=== PATIENT | female | born 1955 | race Caucasian/White ===

== ENCOUNTER 2017-09-14 06:10 | Day surgery (SDC) | payer MEDICARE ==
[~2017-09-14] VITALS: Ht 162.6 cm; Wt 99.8 kg
[~2017-09-14 06:10] MED LIST: ASPIR 8181 M1 PO; AUGMENTIN 500-1 EACH PO; BIOTIN10 MG PO; COZAAR 50 MG TA50 M2 PO; HYDROCODON-ACE1 EAC5 PO; LEVAQUIN 750 M750 MG PO; LIPITOR10 MG PO; LOPRESSOR25 PO; NAPROSYN500 MG PO; NEXIUM 40 MG CA40 M1 PO; TRAMADOL 50 MG50 MG PO; VENTOLIN HFA 1818 GM INH
[2017-09-14 06:38] LABS: HEMATOCRIT 35.1 % (37.0-47.0); HEMOGLOBIN 11.6 gm/dL (12.0-15.0); MCH 29.1 pg (26.0-34.0); MCHC 32.9 g/dL (28.0-37.0); MCV 88.4 fL (80.0-100.0); MPV 8.9 fl. (7.2-11.1); RBC 3.97 mil/uL (4.20-5.00); RDW-CV 15.2 % (10.5-14.5); WBC 4.9 thou/uL (4.0-11.0)
[2017-09-14 07:01] LABS: CREATININE 0.9 mg/dL (0.6-1.3); POTASSIUM 3.7 mmol/L (3.5-5.1)
[2017-09-14 07:06] LABS: ALBUMIN 3.6 g/dL (3.4-5.0); TOTAL BILIRUBIN 0.9 mg/dL (<0.1-1.0); TOTAL PROTEIN 7.3 g/dL (6.4-8.2)
[2017-09-14 07:09] VITALS: BP 134/51
[2017-09-14 12:29] VITALS: BP 141/60
[2017-09-14 15:25] VITALS: BP 136/69
[2017-09-14 20:00] VITALS: BP 139/60
[2017-09-15] VITALS (7 sets, daily range): BP systolic 109–150; BP diastolic 42–68
[2017-09-15] MEDS ORDERED: VENTOLIN HFA 1818 GM INH (12:07)
--- NOTE | 2017-09-16 14:16 | S ---
[place] [address] SURGICAL PATH RPT PROCEDURE Name: JENNA CONTE Room: [facility]#: [id number] Admission: 09/14/17 Date of : 55 Discharge: 09/15/17 Report #: [id number] Path Case #: [id number] PATHOLOGY REPORT COLLECTION DATE: 09/14/2017 RECEIVED DATE: 09/14/2017 SUBMITTING PHYS: Dr. Roxana Shahid OTHER PHYS: Dr. Juanita Castro SPECIMEN(S) RECEIVED: A.Gallbladder * * * * * * * * * * * * FINAL DIAGNOSIS: Gallbladder: - Benign gallbladder tissue with severe chronic and acute ulcerative/hemorrhagic cholecystitis and mural fibrosis. (KERRI:r; 09/16/2017) PATHOLOGIST: Markos Vasquez M.D. REPORT ELECTRONICALLY SIGNED BY: Markos Vasquez M.D. DATE/TIME: 09/16/2017 14:15 * * * * * * * * * * * * GROSS PATHOLOGY: Received in formalin labeled "Jenna Conte gallbladder," is a 6.0 x 3.9 x 1.1 cm segment of yellow adipose tissue with attached pink-camejo to brown dense and cauterized tissue. The specimen received does not display the expected appearance of a gallbladder. All of the dense tissue is submitted in cassettes A1-A4. (SDY; 09/15/2017) CLINICAL HISTORY: Chronic cholecystitis INITIAL CPT CODE(S): A; 17129 Professional services performed by [facility] at [facility] [address] [place] [address] Technical services performed by [facility] at [address] [place] [address] [address] [address]. [facility] [address] [place] [address] SURGICAL PATH RPT PROCEDURE Name: JENNA CONTE Room: [facility]ELINE [facility]dom#: [id number] Admission: 09/14/17 Date of : 55 Discharge: 09/15/17 Report #: [id number] Path Case #: [id number] [place] [id number] [address] [address] PHONE: [phone] DIRECTOR: Donis Taylor M.D. * * * END OF REPORT * * *
--- NOTE | 2017-09-20 18:34 | OP ---
[address] [address] OPERATIVE REPORT Name: JENNA SHERIDAN Marcella Room: [facility]#: [id number] Admission: 09/14/17 Attend Phys: Roxana Shahid MD Discharge: 09/15/17 Date of : 55 Report #: [id number] THIS REPORT FOR: //name// CC: KORTNEY Shahid DATE OF SERVICE: 09/14/2017 PREOPERATIVE DIAGNOSIS: Acute on chronic and severe cholecystitis. POSTOPERATIVE DIAGNOSIS: Acute on chronic and severe cholecystitis. PROCEDURE: 1. Removal of cholecystostomy tube. 2. Partial cholecystectomy. 3. Extensive lysis of adhesions. SURGEON: Roxana Shahid MD. PARKING SUPERVISOR: Kayode Garcia DO ESTIMATED BLOOD LOSS: 20 mL. COMPLICATIONS: None. FINDINGS: Severe inflammation right upper quadrant with adhesion of colon and duodenum to gallbladder, some obscuring of triangle of Calot. Therefore, I chose to proceed with partial cholecystectomy. DESCRIPTION OF PROCEDURE: Fully informed consent was obtained preoperatively and full discussion of risks, benefits, and alternatives, questions answered. The patient understood all risks including bleeding, infection, reoperation, injury to surrounding structures including bowel or bile structures, bile leak, change in procedure, replacement of drain, partial cholecystectomy, conversion to open, and catastrophic complications up to and including cardiopulmonary failure and and chronic pain. The patient understood and wished to proceed. She was taken to the operating room, prepped and draped in standard sterile fashion. We began with a 12 mm incision above the umbilicus, used open Jessica technique to enter safely into the abdomen. Additional ports were placed, a 12 and two 5s. I surveyed the abdomen and there was severe inflammation in the right upper quadrant. Lysis of adhesions was performed for 30 minutes taking down the attachments between colon, omentum, anterior abdominal wall, gallbladder and duodenum. It was finally free. It was elevated and grasped, retracted cranially and laterally. I began my dissection, but noted severe inflammation of the triangle of Calot. Therefore, [place] [address] OPERATIVE REPORT Name: JENNA SHERIDAN [id number] Admission: 09/14/17 Attend Phys: Roxana Shahid MD Discharge: 09/15/17 Date of : 55 Report #: [id number] I chose to proceed with partial cholecystectomy. I began from top down approach with cautery, taking down attachments from the gallbladder and liver bed. I came down to the point where it appeared the neck was, where I knew it was safe and entered into the gallbladder here. I removed all stones within the gallbladder and viewed and we were indeed at the opening of the neck, right at the junction of the gallbladder and cystic duct. This appeared to be completely closed. Next, I excised a portion of the gallbladder, and after removing all stones selected Stratafix and resutured the gallbladder to close the remnant of the gallbladder securely in a running manner. A 19-[place] Islander drain was placed below the liver bed. I irrigated copiously to make sure it was hemostatic and it was. Gallbladder was placed in the EndoCatch bag and removed from the subxiphoid port. 0 Vicryl and Rico-Carson technique was used to close this, and then 0 Vicryl in a [id number] manner to close the umbilical fascia. Finger sweep performed to make sure no entrapped contents. Next, 4-0 Monocryl used to close the skin, 2-0 nylon to suture the drain in place, and Dermabond applied. Sponge, needle, instrument counts were correct at the end of the case. I next reviewed postoperative plan of removing the drain later this week if there are no concerning contents from it. The patient tolerated it well. <ELECTRONICALLY SIGNED> By: Roxana Shahid MD 09/20/17 [id number] Shahid MD /nt
== END 2017-09-15 13:37 | disposition home or self-care (01) ==
LOC: M.SUR 06:10 → M.ORTHSURG 13:05 → M.SUR 14:27
PROVIDERS: Surgery
DX: K81.2 Acute cholecystitis with chronic cholecystitis (principal); Z87.891 Personal history of nicotine dependence; K21.9 Gastro-esophageal reflux disease without esophagitis

== ENCOUNTER → 2017-10-05 | Outpatient (CLI) | payer MEDICARE ==
[2017-10-05 10:39] LABS: ABSOLUTE EOSINOPHILS 0.2 thou/uL (0.0-0.7); ABSOLUTE LYMPHOCYTES 1.2 thou/uL (0.8-5.3); ABSOLUTE MONOCYTES 0.4 thou/uL (0.0-1.2); ABSOLUTE NEUTROPHILS 3.8 thou/uL (1.6-8.1); BASOPHILS 0.6 %; EOSINOPHILS 4.3 %; HEMATOCRIT 30.5 % (37.0-47.0); HEMOGLOBIN 10.1 gm/dL (12.0-15.0); LYMPHOCYTES 20.7 %; MCH 28.7 pg (26.0-34.0); MCHC 33.2 g/dL (28.0-37.0); MCV 86.5 fL (80.0-100.0); MONOCYTES 6.9 %; MPV 8.1 fl. (7.2-11.1); NUCLEATED RBCS 0 /100WBC; PLATELET COUNT* 272 thou/uL (150-400); POLYS 67.5 %; RBC 3.53 mil/uL (4.20-5.00); RDW-CV 15.8 % (10.5-14.5); WBC 5.6 thou/uL (4.0-11.0)
[2017-10-05 11:00] LABS: ALBUMIN 3.3 g/dL (3.4-5.0); CALCIUM 9.2 mg/dL (8.5-10.1); CREATININE 0.8 mg/dL (0.6-1.3); POTASSIUM 3.7 mmol/L (3.5-5.1); TOTAL BILIRUBIN 0.5 mg/dL (<0.1-1.0); TOTAL PROTEIN 7.7 g/dL (6.4-8.2)
== END ==
LOC: M.LAB 10:00 → M.CT 10:16
PROVIDERS: Surgery
DX: Z09 Encounter for follow-up examination after completed treatment for conditions other than malignant neoplasm (principal); K31.89 Other diseases of stomach and duodenum; I70.0 Atherosclerosis of aorta; J98.11 Atelectasis; J44.9 Chronic obstructive pulmonary disease, unspecified; I10 Essential (primary) hypertension; Z90.710 Acquired absence of both cervix and uterus; Z90.49 Acquired absence of other specified parts of digestive tract; Z85.3 Personal history of malignant neoplasm of breast

== ENCOUNTER 2019-05-04 12:42 | Emergency (ER) | payer MEDICARE ==
[~2019-05-04] VITALS: Ht 162.6 cm; Wt 104.8 kg
[2019-05-04] MEDS ORDERED: LASIX 20 MG TAB20 MG PO (12:56)
[2019-05-04] MEDS ORDERED: WATER PILL PO (12:58)
[2019-05-04 13:20] LABS: ABSOLUTE EOSINOPHILS 0.1 thou/uL (0.0-0.7); ABSOLUTE LYMPHOCYTES 1.2 thou/uL (0.8-5.3); ABSOLUTE MONOCYTES 0.3 thou/uL (0.0-1.2); ABSOLUTE NEUTROPHILS 3.3 thou/uL (1.6-8.1); BASOPHILS 0.8 %; EOSINOPHILS 2.5 %; HEMATOCRIT 37.8 % (37.0-47.0); HEMOGLOBIN 12.7 gm/dL (12.0-15.0); LYMPHOCYTES 24.4 %; MCH 29.3 pg (26.0-34.0); MCHC 33.8 g/dL (28.0-37.0); MCV 86.8 fL (80.0-100.0); MONOCYTES 6.8 %; MPV 9.4 fl. (7.2-11.1); NUCLEATED RBCS 0 /100WBC; PLATELET COUNT* 156 thou/uL (150-400); POLYS 65.5 %; RBC 4.35 mil/uL (4.20-5.00); RDW-CV 14.9 % (10.5-14.5)
[2019-05-04 13:30] LABS: PROTIME 10.2 Seconds (9.20-11.50)
[2019-05-04 13:34] LABS: ANION GAP 10 mmol/L (7-16); BUN 14 mg/dL (7-18); CALCIUM 9.5 mg/dL (8.5-10.1); CHLORIDE 102 mmol/L (98-107); CO2 31 mmol/L (21-32); GLUCOSE 148 mg/dL (70-99); POTASSIUM 3.3 mmol/L (3.5-5.1); SODIUM 143 mmol/L (136-145)
[2019-05-04 13:46] LABS: ALBUMIN 3.5 g/dL (3.4-5.0); ALKALINE PHOSPHATASE 108 U/L (46-116); NT-PRO BRAIN NAT PEPTIDE 344 pg/mL (<300); SGOT 14 U/L (15-37); SGPT 24 U/L (30-65); TOTAL BILIRUBIN 0.7 mg/dL (<0.1-1.0); TOTAL PROTEIN 7.4 g/dL (6.4-8.2); TROPONIN-I LEVEL <0.06 ng/mL (<0.06)
[2019-05-04 15:06] VITALS: BP 129/82
--- NOTE | 2019-05-04 16:05 | EKG ---
[place] [address] ELECTROCARDIOGRAM REPORT Name: JENNA SHERIDAN Room: [facility]#: [id number] Admission: 05/04/19 Attend Phys: Discharge: 05/04/19 Date of : 55 Report #: [id number] THIS REPORT FOR: //name// [facility] ED Test Date: 2019-05-04 Test Time: 13:43:07 Pat Name: JENNA SHERIDAN Department: Room: Gender: F Recreation Aide: : 1955 Requested By: Kerri Stern Order Number: [id number] MD: Best Lanza Measurements Intervals [place] Rate: 61 P: 5 ID: [id number] QRS: 5 QRSD: 102 T: 15 QT: 439 QTc: 443 Interpretive Statements Sinus rhythm Abnormal R-wave progression, early transition Baseline wander in lead(s) V6 Compared to ECG 07/25/2017 10:23:10 No significant changes Electronically Signed On 05-04-2019 16:05:31 CDT by Best Lanza [email or web address] <ELECTRONICALLY SIGNED> By: Best Lanza MD, [facility] 05/04/19 1605 1343 [id number] Best Lanza MD, [facility] /EPI
== END 2019-05-04 15:07 | disposition home or self-care (01) ==
LOC: M.ERS 12:42
PROVIDERS: Personal Emergency Response Attendant
DX: I16.0 Hypertensive urgency (principal); I10 Essential (primary) hypertension; J44.9 Chronic obstructive pulmonary disease, unspecified; K21.9 Gastro-esophageal reflux disease without esophagitis; G47.30 Sleep apnea, unspecified; Z85.3 Personal history of malignant neoplasm of breast; Z90.711 Acquired absence of uterus with remaining cervical stump; Z95.5 Presence of coronary angioplasty implant and graft

== ENCOUNTER 2021-08-03 15:42 | Emergency (ER) | payer MEDICARE, OTHER ==
[~2021-08-03] VITALS: Ht 162.6 cm; Wt 80.3 kg
[~2021-08-03 15:42] MED LIST changes: +LASIX 20 MG TAB20 MG PO; +WATER PILL PO
[2021-08-03] MEDS ORDERED: FLECAINIDE ACET50 M2 PO (15:55)
[2021-08-03] MEDS ORDERED: OMEPRAZOLE 20 M20 M1 PO (15:55)
[2021-08-03] MEDS ORDERED: NORCO7.5 PO (15:55)
[2021-08-03] MEDS ORDERED: ELIQUIS2.5 MG PO (15:56)
[2021-08-03 16:32] LABS: ABSOLUTE EOSINOPHILS 0.2 thou/uL (0.0-0.7); ABSOLUTE LYMPHOCYTES 1.6 thou/uL (0.8-5.3); ABSOLUTE MONOCYTES 0.6 thou/uL (0.0-1.2); BASOPHILS 0.7 %; EOSINOPHILS 2.4 %; HEMATOCRIT 38.7 % (37.0-47.0); LYMPHOCYTES 25.5 %; MCH 30.3 pg (26.0-34.0); MCHC 33.7 g/dL (28.0-37.0); MCV 89.9 fL (80.0-100.0); MONOCYTES 8.7 %; NUCLEATED RBCS 0 /100WBC; PLATELET COUNT* 170 thou/uL (150-400); POLYS 62.7 %; RDW-CV 13.8 % (10.5-14.5); WBC 6.3 thou/uL (4.0-11.0)
[2021-08-03 16:41] LABS: CALCIUM 9.3 mg/dL (8.5-10.1); CREATININE 1.3 mg/dL (0.6-1.3); POTASSIUM 4.1 mmol/L (3.5-5.1)
[2021-08-03 16:45] LABS: INFLUENZA A ANTIGEN Negative (Negative); INFLUENZA B ANTIGEN Negative (Negative)
[2021-08-03 16:45] LABS: ALBUMIN 3.7 g/dL (3.4-5.0); TOTAL BILIRUBIN 0.9 mg/dL (<0.1-1.0); TOTAL PROTEIN 7.8 g/dL (6.4-8.2)
[2021-08-03] MEDS ORDERED: MEDROLDOSEPACK PO (17:53)
[2021-08-03 18:02] VITALS: BP 115/46
== END 2021-08-03 18:03 | disposition home or self-care (01) ==
LOC: M.ERS 15:42
PROVIDERS: Nurse Practitioner Psychiatric/Mental Health
DX: S46.812A Strain of other muscles, fascia and tendons at shoulder and upper arm level, left arm, initial encounter (principal); Z20.822 Contact with and (suspected) exposure to COVID-19; R51.9 Headache, unspecified; I10 Essential (primary) hypertension; J44.9 Chronic obstructive pulmonary disease, unspecified; K21.9 Gastro-esophageal reflux disease without esophagitis; Z90.711 Acquired absence of uterus with remaining cervical stump; Z90.49 Acquired absence of other specified parts of digestive tract; Z98.51 Tubal ligation status; Z79.899 Other long term (current) drug therapy; X58.XXXA Exposure to other specified factors, initial encounter; Y93.89 Activity, other specified; Y92.89 Other specified places as the place of occurrence of the external cause; Y99.8 Other external cause status

== ENCOUNTER 2021-10-04 13:05 | Emergency (ER) | payer OTHER ==
[~2021-10-04] VITALS: Ht 162.6 cm; Wt 80.3 kg
[~2021-10-04 13:05] MED LIST changes: +ELIQUIS2.5 MG PO; +FLECAINIDE ACET50 M2 PO; +MEDROLDOSEPACK PO; +NORCO7.5 PO; +OMEPRAZOLE 20 M20 M1 PO
[2021-10-04] MEDS ORDERED: PROTONIX40 M4 PO (13:19)
[2021-10-04] MEDS ORDERED: SPIRONOLACTONE50 MG PO (13:20)
[2021-10-04] MEDS ORDERED: VITAMIN D-40010 MCG PO (13:20)
[2021-10-04] MEDS ORDERED: CEPHALEXIN500 MG PO (14:20)
[2021-10-04 14:32] VITALS: BP 111/66
== END 2021-10-04 14:33 | disposition home or self-care (01) ==
LOC: M.ERS 13:05
DX: S61.412A Laceration without foreign body of left hand, initial encounter (principal); I10 Essential (primary) hypertension; J44.9 Chronic obstructive pulmonary disease, unspecified; K21.9 Gastro-esophageal reflux disease without esophagitis; I48.91 Unspecified atrial fibrillation; Z85.3 Personal history of malignant neoplasm of breast; Z90.711 Acquired absence of uterus with remaining cervical stump; Z98.51 Tubal ligation status; Z90.49 Acquired absence of other specified parts of digestive tract; Z79.899 Other long term (current) drug therapy; Z87.891 Personal history of nicotine dependence; W26.0XXA Contact with knife, initial encounter; Y93.89 Activity, other specified; Y92.89 Other specified places as the place of occurrence of the external cause; Y99.8 Other external cause status